=== PATIENT | male | born 1960 | race Caucasian/White ===

== ENCOUNTER 2017-11-08 20:44 | Inpatient (IN) | payer BC ==
[~2017-11-08] VITALS: Ht 167.6 cm; Wt 73.5 kg
[2017-11-08 20:49] VITALS: BP 89/63
[2017-11-08] MEDS ORDERED: ASPIRIN325 PO (20:55)
[2017-11-08 21:13] LABS: ABSOLUTE EOSINOPHILS 0.4 thou/uL (0.0-0.7); ABSOLUTE LYMPHOCYTES 2.1 thou/uL (0.8-5.3); ABSOLUTE MONOCYTES 0.8 thou/uL (0.0-1.2); ABSOLUTE NEUTROPHILS 5.9 thou/uL (1.6-8.1); BASOPHILS 0.2 %; EOSINOPHILS 4.2 %; HEMOGLOBIN 16.9 gm/dL (14.0-18.0); LYMPHOCYTES 22.9 %; MCH 30.6 pg (26.0-34.0); MCHC 34.6 g/dL (28.0-37.0); MCV 88.3 fL (80.0-100.0); MONOCYTES 8.3 %; MPV 8.4 fl. (7.2-11.1); NUCLEATED RBCS 0 /100WBC; PLATELET COUNT* 208 thou/uL (150-400); POLYS 64.4 %; RBC 5.54 mil/uL (4.50-6.00); RDW-CV 13.6 % (10.5-14.5); WBC 9.1 thou/uL (4.0-11.0)
[2017-11-08 21:19] LABS: CALCIUM 9.1 mg/dL (8.5-10.1); CREATININE 0.9 mg/dL (0.6-1.3); POTASSIUM 3.8 mmol/L (3.5-5.1)
[2017-11-08 21:27] LABS: PROTIME 9.9 Seconds (9.20-11.50)
[2017-11-08 21:30] LABS: ALBUMIN 3.9 g/dL (3.4-5.0); TOTAL BILIRUBIN 0.3 mg/dL (<0.1-1.0); TOTAL PROTEIN 7.7 g/dL (6.4-8.2); TROPONIN-I LEVEL 0.48 ng/mL (<0.06)
[2017-11-08 22:49] VITALS: BP 109/85
[2017-11-09] VITALS (13 sets, daily range): BP systolic 107–159; BP diastolic 60–107
--- NOTE | 2017-11-09 01:16 | CARD ---
[address] [address] CARDIAC CATH REPORT Name: RUSSEL BRAVO Room: 008-P [facility] IN M.R.#: [id number] Admission: 11/09/17 Attend Phys: Russel Folwers MD, Discharge: Date of : 56 Report #: [id number] THIS REPORT FOR: //name// APPROVED REPORT Study performed: 11/08/2017 22:25:07 Patient Details Patient Status: ED Room #: 18 The patient is a 57 year-old male Event Personnel Russel Flowers Veneer Glue Jointer Feedback, Mary Moyer RN Silicator, Ramila Cruz RN Monitor, Gurmeet Ogden (R) Scrub Procedures Performed Art Access - R femoral artery* , Left Heart Catheterization, PTCA with Balloon Angioplasty OM1; left heart catheterization left ventriculography and selective coronary artery , PTCA with Stenting [facility] Indication Abnormal ECG, Non-STEMI Risk Factors Tobacco History () Admission/Lab Medications/Medications given during procedure Aspirin, Angiomax IV 10.5 ml, Angiomax Drip IV 25.2 ml per hr Procedure Narrative The patient was brought emergently to the Cardiac Catheterization Laboratory and was prepped and draped in a sterile manner. The right femoral was infiltrated with 1% Lidocaine subcutaneous anesthesia. A [place] 6 FR sheath was inserted into the right femoral artery. Coronary angiography was performed using coronary diagnostic catheters. The right coronary system was accessed and visualized with a Diagnostic catheter. The left coronary system was accessed and visualized with a Diagnostic catheter. The left ventricle was accessed and visualized with a Diagnostic catheter. Left ventricular/Aortic Valve gradient assessed via catheter pullback. Pre-demployment femoral angiogram was performed . Closure device was deployed with a 6 Fr Mynx. The patient tolerated the procedure well and there were no complications [place] [address] CARDIAC CATH REPORT Name: RUSSEL BRAVO Room: [address] IN [facility].#: [id number] Admission: 11/09/17 Attend Phys: Russel Flowers MD, Discharge: Date of : 56 Report #: [id number] was no hematoma. Intraoperative Conscious Sedation Fentanyl mcg Dose: 2314 mGy Contrast Type and Amount: Visipaque 545 ml Coronary Angiography The patient's coronary anatomy is right dominant. Diagnostic Cath Left Main 0% narrowing LAD 40% mid vessel narrowing Circumflex 90% mid vessel stenosis with local thrombus at the site and 90% ostial first marginal narrowing with local thrombus at the site Right Coronary 60% ostial narrowing with 40% mid vessel narrowing, this being a dominant vessel Left Ventriculography The left ventricle is normal in size with normal contractility. The left ventricular ejection fraction is estimated to be 65%. Left ventricular wall motion abnormalities are not present. There is no mitral insufficiency. Hemodynamics The aortic pressure is 140/70 mmHg with a mean of 82 mmHg. The left ventricular end diastolic pressure is 20 mmHg. There was no gradient across the aortic valve upon pullback. PCI Technique Lesion Anticoagulation was achieved with Angiomax. Percutaneous coronary intervention was performed on the mid circumflex artery segment. The lesion stenosis prior to intervention was 90% with DIPIKA 3 flow. A 6 Colombian XB LAD 3.5 Guide Catheter was used to engage the left ostium. A IG: ProwaterFlex 180CM Interventional Guidewire was used to cross the lesion. BALLOON DILATION A Balloon catheter Trek RX 2.25 X 12 was inserted and inflated up to 14atm for Deanseconds. STENT DEPLOYMENT A drug-eluting stent Xience Alpine RX 2.25X23 was inserted and inflated up to 11atm [place] [address] CARDIAC CATH REPORT Name: RUSSEL BRAVO Room: [address] IN [facility].#: [id number] Admission: 11/09/17 Attend Phys: Russel Flowers MD, Discharge: Date of : 56 Report #: [id number] Final angiography reveals 10 % stenosis with DIPIKA 3 flow. PCI Technique Lesion 2 Percutaneous Coronary Intervention was performed on the first obtuse marginal branch segment. Percutaneous coronary intervention was performed on the first marginal branch of the circumflex. The lesion stenosis prior to intervention was 90% with DIPIKA 3 flow. A IG: BMW 190cm Interventional Guidewire was used to cross the lesion. Balloon Dilation A Balloon catheter Trek RX 2.25 X 8 was inserted and inflated up to 12atm for 15seconds. Final angiography reveals 10 % stenosis with DIPIKA 3 flow. Conclusion #1 significant multivessel coronary artery disease characterized by the following: A 90% mid circumflex stenosis with 90% ostial first marginal narrowing with local thrombus at both sites B 40% mid LAD narrowing C dominant right coronary artery with 60% ostial 40% mid vessel narrowing #2 normal left ventricular systolic function, estimate ejection fraction being 65% #3 moderate elevation of left ventricular end-diastolic pressure at rest #4 successful percutaneous coronary intervention with deployment of a drug-eluting stent at the site of 90% mid circumflex stenosis with local thrombus at the site; there was 10% residual narrowing DIPIKA-3 flow and no residual thrombus following stent deployment #5 successful percutaneous transluminal coronary angioplasty at the site of 90% ostial first marginal narrowing with 10% residual narrowing following final dilatation DIPIKA-3 flow to the distal vessel and no [place] [address] CARDIAC CATH REPORT Name: RUSSEL BRAVO Room: [address]#: [id number] Admission: 11/09/17 Attend Phys: Russel Flowers MD, Discharge: Date of : 56 Report #: [id number] Smoking Cessation Cardiac Risk Reduction Program Aggressive Medical Therapy Medications Administered Aspirin (any) Ticagrelor Diagnostic Cath Approved by: Russel Flowers MD Date/Time: at 0114 hours <ELECTRONICALLY SIGNED> By: Russel Flowers MD, FACC 11/09/17115 5 5Russel Flowers MD, FAC /INF
[2017-11-09 05:37] LABS: HEMATOCRIT 41.5 % (42.0-52.0); MCHC 33.7 g/dL (28.0-37.0); MCV 88.9 fL (80.0-100.0); MPV 8.5 fl. (7.2-11.1); RBC 4.67 mil/uL (4.50-6.00); RDW-CV 13.5 % (10.5-14.5); WBC 13.1 thou/uL (4.0-11.0)
[2017-11-09 05:49] LABS: ALBUMIN 2.9 g/dL (3.4-5.0); ALKALINE PHOSPHATASE 77 U/L (46-116); ANION GAP 7 mmol/L (7-16); BUN 11 mg/dL (7-18); CALCIUM 8.2 mg/dL (8.5-10.1); CHLORIDE 107 mmol/L (98-107); CHOLESTEROL 200 mg/dL (<200); CO2 26 mmol/L (21-32); CREATININE 0.8 mg/dL (0.6-1.3); GLUCOSE 92 mg/dL (70-99); HDL CHOLESTEROL 36 mg/dL (>40); LDL CHOLESTEROL 128 mg/dL (<100); POTASSIUM 3.7 mmol/L (3.5-5.1); SGOT 20 U/L (15-37); SGPT 23 U/L (30-65); SODIUM 140 mmol/L (136-145); TC:HDL 5.6 Ratio (Not establshd); TOTAL BILIRUBIN 0.7 mg/dL (<0.1-1.0); TOTAL PROTEIN 5.9 g/dL (6.4-8.2); TRIGLYCERIDE 181 mg/dL (<150); VLDL 36 mg/dL (<40)
[2017-11-09 06:04] LABS: SERUM ASSESSMENT Clear
[2017-11-09 06:05] LABS: TROPONIN-I LEVEL 2.07 ng/mL (<0.06)
--- NOTE | 2017-11-09 07:56 | NUR ---
pt resting in bed, appears alert o x 4, denies chest pain, SOB, pain or discomfort, R groin cath site appears soft c/d/I without evidence of bleeding
--- NOTE | 2017-11-09 15:58 | EKG ---
[place] [address] ELECTROCARDIOGRAM REPORT Name: RUSSEL BRAVO Room: [address] ADM IN M.R.#: [id number] Admission: 11/09/17 Attend Phys: Russel Flowers MD, Discharge: Date of : 56 Report #: [id number] THIS REPORT FOR: //name// [facility] ED Test Date: 2017-11-08 Test Time: 22:04:01 Pat Name: RUSSEL BRAVO Department: Room: [address] Gender: M Blanker Operator: BD : 1960 Requested By: Hanane Brooks Order Number: [id number] Darek MD: Miky Buck Measurements Intervals [place] Rate: 88 P: 50 OK: 128 QRS: 17 QRSD: 81 T: QT: 389 QTc: 471 Interpretive Statements Sinus rhythm Borderline repolarization abnormality, consider ischemia No previous ECG available for comparison Electronically Signed On 11-09-2017 15:58:48 CDT by Miky Buck [email or web address] <ELECTRONICALLY SIGNED> By: Miky Buck MD, [facility] 11/09/17 1558 2204 2204 Miky Buck MD, FACC /EPI
--- NOTE | 2017-11-09 15:58 | EKG ---
[place] [address] ELECTROCARDIOGRAM REPORT Name: RUSSEL BRAVO Room: M008-[facility] IN .R.#: [id number] Admission: 11/09/17 Attend Phys: Russel Flowers MD, Discharge: Date of : 56 Report #: [id number] THIS REPORT FOR: //name// [facility] ED Test Date: 2017-11-08 Test Time: 20:45:03 Pat Name: RUSSEL BRAVO Department: Room: Gender: M Platform Beater: : 1960 Requested By: Hanane Brooks Order Number: [id number] MD: Miky Buck Measurements Intervals [place] Rate: 101 P: 51 FL: 119 QRS: 17 QRSD: 75 T: 104 QT: 356 QTc: 462 Interpretive Statements Sinus tachycardia Borderline repol abnrm, anterolateral leads, consider ischemia No previous ECG available for comparison Electronically Signed On 11-09-2017 15:58:36 CDT by Miky Buck [email or web address] <ELECTRONICALLY SIGNED> By: Miky Buck MD, [facility] 11/09/17 1558 44 Miky Buck MD, FACC /EPI
--- NOTE | 2017-11-09 16:03 | EKG ---
[place] [address] ELECTROCARDIOGRAM REPORT Name: RUSSEL BRAVO Room: [address] ADM IN M.R.#: [id number] Admission: 11/09/17 Attend Phys: Russel Flowers MD, Discharge: Date of : 56 Report #: [id number] THIS REPORT FOR: //name// [facility] Test Date: 2017-11-09 Test Time: 01:05:15 Pat Name: RUSSEL BRAVO Department: Room: [address] Gender: M Harness Tier: : 1960 Requested By: Russel Flowers Order Number: [id number] Reading MD: Miky Buck Measurements Intervals [place] Rate: 70 P: 41 NC: 134 QRS: 17 QRSD: 78 T: -17 QT: 420 QTc: 454 Interpretive Statements Sinus rhythm Abnormal R-wave progression, early transition Borderline T abnormalities, inferior leads No previous ECG available for comparison Electronically Signed On 11-09-2017 16:02:59 CDT by Miky Buck [email or web address] <ELECTRONICALLY SIGNED> By: Miky Buck MD, [facility] 11/09/17 1602 D: 05/104 4 Miky Buck MD, FACC /EPI
--- NOTE | 2017-11-09 16:06 | EKG ---
[place] [address] ELECTROCARDIOGRAM REPORT Name: RUSSEL BRAVO Room: [address] ADM IN M.R.#: [id number] Admission: 11/09/17 Attend Phys: Russel Flowers MD, Discharge: Date of : 56 Report #: [id number] THIS REPORT FOR: //name// [facility] Test Date: 2017-11-09 Test Time: 08:05:28 Pat Name: RUSSEL BRAVO Department: Room: [address] Gender: M Informatics Educator: : 1960 Requested By: Russel Flowers Order Number: [id number] Darek MD: Miky Buck Measurements Intervals [place] Rate: 77 P: 46 W[place]: 137 QRS: 17 QRSD: 77 T: 56 QT: 426 QTc: 483 Interpretive Statements Sinus rhythm Nonspecific ST segment depression No previous ECG available for comparison Electronically Signed On 11-09-2017 16:06:30 CDT by Miky Buck [email or web address] <ELECTRONICALLY SIGNED> By: Miky Buck MD, [facility] 11/09/17 1606 0805 4 Miky Buck MD, FACC /EPI
--- NOTE | 2017-11-09 19:00 | NUR ---
pt resting in bed most of am, was uip inchair most of afternoon, , remains o x 3, denies chest pain, SOB, pain or discomfort, R groin cath site remaisn soft and intact without evidence of bleeding, good appetite, no c/o pain, is TELE status
[2017-11-10] VITALS: BP 101/79
[2017-11-10 04:00] VITALS: BP 111/79
[2017-11-10 04:48] LABS: HEMATOCRIT 41.8 % (42.0-52.0); HEMOGLOBIN 14.3 gm/dL (14.0-18.0); MCH 30.3 pg (26.0-34.0); MCHC 34.3 g/dL (28.0-37.0); MCV 88.3 fL (80.0-100.0); MPV 8.9 fl. (7.2-11.1); RBC 4.74 mil/uL (4.50-6.00); RDW-CV 13.4 % (10.5-14.5); WBC 13.5 thou/uL (4.0-11.0)
[2017-11-10 04:57] LABS: CALCIUM 8.9 mg/dL (8.5-10.1); CREATININE 0.9 mg/dL (0.6-1.3); MAGNESIUM 1.9 mg/dL (1.8-2.4); POTASSIUM 4.1 mmol/L (3.5-5.1)
[2017-11-10 05:02] LABS: TROPONIN-I LEVEL 0.97 ng/mL (<0.06)
[2017-11-10] MEDS ORDERED: BRILINTA90 MG PO (10:50)
[2017-11-10] MEDS ORDERED: ATORVASTATIN CA20 MG PO (10:50)
[2017-11-10] MEDS ORDERED: COREG6.25 MG PO (10:51)
[2017-11-10 11:01] VITALS: BP 118/80
[2017-11-10 11:19] VITALS: BP 118/80
[2017-11-10] MEDS ORDERED: ASPIR 8181 MG PO (11:26)
--- NOTE | 2017-11-10 12:22 | NUR ---
PATIENT DISACHARGED HOME PER PRIVATE CAR. DENIES CHEST PAIN. STATES UNDERSTANDING..
[2017-11-10 12:39] VITALS: BP 118/80
--- NOTE | 2017-11-11 17:14 | D ---
[address] [address] DISCHARGE SUMMARY Name: LAWRENCEARISTIDES Room: [address] IN M.R.#: [id number] Admission: 11/09/17 Attend Phys: Humberto Flowers MD, Discharge: 11/10/17 Date of : 56 Report #: [id number] THIS REPORT FOR: //name// CC: [facility] physician/PCP Humberto Flowers MD [facility] DATE OF SERVICE: 11/10/2017 DISCHARGE DIAGNOSES: 1. Non-ST elevation myocardial infarction. 2. Hyperlipidemia. 3. Tobacco abuse. 4. Acute on chronic diastolic heart failure. PROCEDURES DURING THE HOSPITALIZATION: 1. Percutaneous coronary intervention. 2. Mid circumflex and obtuse marginal branch at a bifurcation. HOSPITAL COURSE: The patient was admitted with chest pain consistent with angina. He did rule in for myocardial infarction. Peak troponin during this hospitalization was 2.07. A lipid profile showed a total cholesterol 200, triglycerides 181, HDL 36 and LDL 128. The patient's labs were otherwise unremarkable. The patient was taken to the catheterization lab urgently with EKG changes and symptoms to suggest acute coronary syndrome. He was found to have a high grade stenosis involving the mid circumflex and obtuse marginal branch, for which he underwent balloon angioplasty and percutaneous coronary intervention. The patient had a 2.25 x 23 mm Xience drug-eluting stent placed to the mid circumflex with excellent result. The origin of the obtuse marginal branch at the bifurcation was ballooned. The final result showed no significant stenoses. The patient was noted to have a 40% mid LAD narrowing and 60% ostial right coronary narrowing and 40% mid right coronary narrowing. EF on left ventriculogram was 65%. Left ventricular end diastolic pressure was mildly elevated. The patient's recovery in the hospital was unremarkable. DISCHARGE MEDICATIONS: Include aspirin 81 mg daily, Brilinta 90 mg b.i.d., carvedilol 6.25 mg b.i.d. and atorvastatin 40 mg at bedtime. DISPOSITION: The patient is to follow up in the Cardiology office in 1-2 weeks with nurse practitioner and 1-2 months with the medication assistant. <ELECTRONICALLY SIGNED> By: Miky Buck MD, FACC 11/11/17 1714 1103 [id number] Buck MD, FACC /nt
--- NOTE | 2018-02-17 09:07 | H ---
[address] [address] HISTORY AND PHYSICAL Name: RUSSEL BRAVO Room: [address] IN M.R.#: [id number] Admission: 11/09/17 Attend Phys: Russel Flowers MD, Discharge: 11/10/17 Date of : 56 Report #: [id number] THIS REPORT FOR: //name// CC: [facility] physician/PCP Russel Flowers HISTORY OF PRESENT ILLNESS: The patient is a 57-year-old male who presented to the ER in the evening of 11/08 after waxing and waning chest discomfort present since this preceding Friday. He had a protracted discomfort in the evening of Friday, 11/08 and sought assistance in the ER. He denied associated nausea or diaphoresis. He has had several episodes of pain between Friday and the more protracted episode in the evening of admission. Major risk factors for coronary artery disease include a positive family history of atherosclerotic disease and an approximate 40-50 pack year cigarette smoking history. He denies awareness of hypertension, hypercholesterolemia, diabetes or peripheral vascular disease. PAST MEDICAL HISTORY: Remarkable for tobacco habituation. SOCIAL HISTORY: The patient is and he is a nonsmoker. PHYSICAL EXAMINATION: GENERAL: Reveals an acutely distressed, middle-aged male. VITAL SIGNS: Blood pressure is 150/70, pulse rate is 74 and respirations are 18 per minute. NECK: Jugular venous pressure is normal. CHEST: Clear. CARDIAC: Reveals normal first and second heart sounds with a question of S4 gallop. ABDOMEN: Soft. EXTREMITIES: Without edema with intact femoral, pedal and radial pulses. LABORATORY DATA: Electrocardiogram demonstrates anterolateral ST segment depression suggesting ischemia. IMPRESSION: 1. Non-ST segment elevation myocardial infarction suggested with the aforementioned EKG changes and troponin of 0.48. 2. Presumed underlying coronary artery disease. 3. Tobacco habituation. RECOMMENDATIONS: We will proceed with emergent cardiac catheterization given the unstable acute coronary syndrome with strong consideration of acute intervention contingent on the results of the study. The patient received aspirin, heparin and nitrates. We will plan to proceed with the undertaking of cardiac catheterization emergently on 11/08/[place] [address] HISTORY AND PHYSICAL Name: RUSSEL BRAVO Room: 008-P [facility] IN .R.#: [id number] Admission: 11/09/17 Attend Phys: Russel Flowers MD, Discharge: 11/10/17 Date of : 56 Report #: [id number] Critical care time is 23:25 to 23:55 on 11/08/2017. He is going to ICU 8. <ELECTRONICALLY SIGNED> By: Russel Flowers MD, [facility] 02/17/18 0907 0037 0143Russel Flowers MD, FACC /nt
== END 2017-11-10 13:00 | disposition home or self-care (01) | DRG 246 ==
LOC: M.ERS 20:44 → M.CL 20:44 → M.TBA-CV 11-09 01:02 → M.ICU 11-09 01:06
PROVIDERS: Emergency Medicine; Family Medicine; ADMIT Internal Medicine
PROC: B2151ZZ Fluoroscopy of Left Heart using Low Osmolar Contrast (ICD-10-PCS; principal; 2017-11-09)
PROC: 027034Z Dilation of Coronary Artery, One Artery with Drug-eluting Intraluminal Device, Percutaneous Approach (ICD-10-PCS; principal; 2017-11-09)
PROC: B2111ZZ Fluoroscopy of Multiple Coronary Arteries using Low Osmolar Contrast (ICD-10-PCS; principal; 2017-11-09)
PROC: 4A023N7 Measurement of Cardiac Sampling and Pressure, Left Heart, Percutaneous Approach (ICD-10-PCS; principal; 2017-11-09)
DX: I21.4 Non-ST elevation (NSTEMI) myocardial infarction (principal); I50.33 Acute on chronic diastolic (congestive) heart failure; F17.210 Nicotine dependence, cigarettes, uncomplicated; F10.10 Alcohol abuse, uncomplicated; E78.5 Hyperlipidemia, unspecified; Z82.49 Family history of ischemic heart disease and other diseases of the circulatory system

== ENCOUNTER → 2018-03-23 | Outpatient (CLI) | payer BC ==
[~2018-03-23] VITALS: Ht 167.6 cm; Wt 72.6 kg
[~2018-03-23] MED LIST: ASPIR 8181 MG PO; ASPIRIN325 PO; ATORVASTATIN CA20 MG PO; BRILINTA90 MG PO; COREG6.25 MG PO
[2018-03-23 14:24] VITALS: BP 163/80
== END ==
LOC: M.CT 03-11 09:44
DX: I65.21 Occlusion and stenosis of right carotid artery (principal); I65.02 Occlusion and stenosis of left vertebral artery; M47.812 Spondylosis without myelopathy or radiculopathy, cervical region; I21.4 Non-ST elevation (NSTEMI) myocardial infarction; I25.10 Atherosclerotic heart disease of native coronary artery without angina pectoris; E78.00 Pure hypercholesterolemia, unspecified; I73.9 Peripheral vascular disease, unspecified

== ENCOUNTER → 2018-03-30 | Outpatient (CLI) | payer BC | LOC: M.CT 12:32 | DX: I25.10 Atherosclerotic heart disease of native coronary artery without angina pectoris (principal); I65.23 Occlusion and stenosis of bilateral carotid arteries ==

== ENCOUNTER → 2019-04-06 | Outpatient (CLI) | payer BC ==
--- NOTE | 2019-04-06 13:17 | CARDNUC ---
[place] [address] CARDIAC NUCLEAR IMAGING REPORT Name: RUSSEL BRAVO Room: [facility]#: [id number] Admission: 04/06/19 Attend Phys: Mary Cuenca Discharge: Date of : 56 Date of Service: 04/06/19 1316 Report #: [id number] THIS REPORT FOR: //name// APPROVED REPORT Imaging Protocol: Rest Tc-99m/Stress Tc-99m 1 day Study performed: 04/06/2019 09:27:47 Indication: CAD s/p PCI, CAD s/p AZ Patient Location: Out-Patient Stress Tech: Cecilia Banks Stress Nurse: Jerrica Grant RN NM Tech:NILES Manuel Ht: 5 ft 6 in Wt: 160 lbs BSA: 1.82 m2 BMI: 25.82 Medical History Medical History: Angina, CAD s/p AZ, CAD s/p stent, Carotid artery disease, Current Smoker, Fatigue, HTN, Hyperlipidemia, PVD. Medications: Carvedilol, Brilinta,Atorvastatin, 81 Mg. Allergies: No known drug allergies Cardiac Risk Factors: Age, Current Smoker, FHX of CAD, HTN, Hyperlipidemia, PVD, Caroid Artery Stenosis. Previous Cardiac Procedures: Myocardial infarction, PCI. Pretest Chest Pain Characteristics: No chest pain Exercise History: Indeterminate Physical Disabilities: Knees, back. Meds Held (24 hrs): Carvedilol. Resting Data Rest SPECT myocardial perfusion imaging was performed in supine position 30 minutes following the intravenous injection of 11.1 mCi of Tc-99m Sestamibi. Time of rest injection: 0 Date: 04/06/2019 The images were gated to evaluate regional wall motion and calculate left ventricular ejection fraction. Administration Route: IV Administration Site: Right AC Exercise Stress At peak stress, the patient was injected intravenously with 35.5mCi of Tc-99m Sestamibi. Time of stress injection: 924 Date: 04/06/2019 [place] [address] CARDIAC NUCLEAR IMAGING REPORT Name: RUSSEL BRAVO Room: [facility]#: [id number] Admission: 04/06/19 Attend Phys: Mary Cuenca Discharge: Date of : 56 Date of Service: 04/06/19 1316 Report #: [id number] Administration Route: IV Administration Site: Right AC Gated Stress SPECT was performed 30 minutes after stress injection. The images were gated to evaluate regional wall motion and calculate left ventricular ejection fraction. Prone imaging was performed. Stress Test Details Stress Test: Exercise stress testing was performed using a Oliver protocol. HR Max Heart Rate (APMHR): 160 bpm Resting HR: 88 bpm Target HR (85% APMHR): 136 bpm Max HR Achieved: 162 bpm % of APMHR: 101 Recovery HR: 102 bpm BP Resting BP: 167/98 mmHg Max BP: 218/85 mmHg Recovery BP: 173/93 mmHg ECG Resting ECG: Sinus Rhythm Stress ECG: Sinus Tachycardia ST Change: None Arrhythmia: None Recovery ECG: Sinus Rhythm Recovery ST Change: None Recovery Arrhythmia: None Clinical Reason for Termination: Maximal effort, Patient Request, Dyspnea, Leg fatigue. Stress Symptoms: Dyspnea, Fatigue, Weakness, Dizziness, Dull ache in chest center . Exercise duration: 4 min 07 sec Exercise capacity: 4.64 METs Overall Exercise Capacity for Age: Major Dysfunction The patient exhibited poor exercise tolerance. He had dyspnea and fatigue but no judy chest pain. He did attain target heart rate. Nurse Comments A 58 YEAR OLD MALE PRESENTED S/P PCI AND NSTEMI. PATIENT PERFORMED A BRIEF OLIVER PROTOCOL NUCLEAR STRESS TEST WITH DIFFICULTY[place] [address] CARDIAC NUCLEAR IMAGING REPORT Name: RUSSEL BRAVO Room: [facility]#: [id number] Admission: 04/06/19 Attend Phys: Mary Cuenca Discharge: Date of : 56 Date of Service: 04/06/19 1316 Report #: [id number] REQUIRED BACK SUPPORT BY STAFF AT 2:00 INTO EXERCISE. NUCLEAR MED INJECTED AT 4:00 AND PATIENT REQUIRED BACK SUPPORT AND REDUCTION IN SPEED AND INCLINE OF TREADMILL FOR SAFETY. PATIENT WAS VERY FATIGUED, SOA WITH WEAKNESS IN LEGS. RECOVERY UNREMARKABLE. PATIENT WAS ESCORTED TO NUCLEAR MEDICINE FOR IMAGES. PATIENT WAS STABLE WITH NO FURTHER COMPLAINTS AT THAT TIME. EXERCISE CAPACITY - MAJOR DYSFUNCTION. Stress ECG Conclusion The baseline 12-lead EKG shows sinus rhythm without significant ST or T wave abnormality. EKGs during and post exercise showed sinus rhythm and sinus tachycardia with no significant ST or T wave changes when compared baseline. There were no stress-induced arrhythmias. Study Quality Study: Good Artifact: No artifact Study Data At rest, the left ventricular ejection fraction was 65%.. Post stress, the left ventricular ejection was 63%.. TID = 0.87. Perfusion Normal left ventricular perfusion. Wall Motion Normal left ventricular wall motion. Nuclear Conclusion ECG Findings: negative for ischemia Clinical Findings: negative for ischemia Nuclear Findings: negative for ischemia Exercise Capacity: Reduced Left Ventricular Function: normal Risk Study: low Myocardial perfusion images show no defect to suggest infarct or ischemia. Left ventricular systolic function appears normal on gated studies. This is not a high risk study. <Conclusion> The baseline 12-lead EKG shows sinus rhythm without significant ST or T wave abnormality. EKGs during and post exercise showed [place] [address] CARDIAC NUCLEAR IMAGING REPORT Name: LAWRENCERUSSELCARLA Room: [facility] DEON Eller#: [id number] Admission: 04/06/19 Attend Phys: Mary Cuenca Discharge: Date of : 56 Date of Service: 04/06/19 1316 Report #: [id number] and sinus tachycardia with no significant ST or T wave changes when compared baseline. There were no stress-induced arrhythmias. <ELECTRONICALLY SIGNED> By: Miky Buck MD, FACC 04/06/191315 15 15 Miky Buck MD, FACC /INF
== END ==
LOC: M.NUC 10-26 16:21
DX: I25.10 Atherosclerotic heart disease of native coronary artery without angina pectoris (principal); I21.4 Non-ST elevation (NSTEMI) myocardial infarction; I25.2 Old myocardial infarction; I10 Essential (primary) hypertension; Z95.5 Presence of coronary angioplasty implant and graft; Z87.891 Personal history of nicotine dependence; Z79.899 Other long term (current) drug therapy